=== PATIENT | male | born 1975 | race American Indian/Alaskan Native ===

== ENCOUNTER 2018-01-26 12:51 | Emergency (ER) | payer OTHER ==
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
[2018-01-26 17:29] VITALS: BP 152/82
== END 2018-01-26 17:44 | disposition home or self-care (01) ==
LOC: ED 12:51
DX: M79.1 Myalgia (principal); V47.5XXA Car driver injured in collision with fixed or stationary object in traffic accident, initial encounter; F17.200 Nicotine dependence, unspecified, uncomplicated; Y93.89 Activity, other specified; Y92.89 Other specified places as the place of occurrence of the external cause; Y99.8 Other external cause status
CPT/HCPCS: 99282